=== PATIENT | female | born 1940 | race Caucasian/White ===

== ENCOUNTER 2020-03-08 10:01 | Outpatient (CLI) | payer OTHER ==
[~2020-03-08 10:01] MED LIST: METFORMIN HCL750 MG PO
== END 2020-03-08 15:00 | disposition home or self-care (01) ==
LOC: LAB 10:01
PROVIDERS: ATTEND Surgery
DX: Z20.828 Contact with and (suspected) exposure to other viral communicable diseases (principal); I10 Essential (primary) hypertension; D64.89 Other specified anemias; D68.8 Other specified coagulation defects; N39.0 Urinary tract infection, site not specified; E04.1 Nontoxic single thyroid nodule; E78.2 Mixed hyperlipidemia

== ENCOUNTER 2020-03-09 05:55 | Day surgery (SDC) | payer OTHER | END 2020-03-09 22:30 | disposition home or self-care (01) | LOC: CIR.AMB 05:55 | PROVIDERS: ATTEND Surgery | DX: D05.12 Intraductal carcinoma in situ of left breast (principal); Z20.828 Contact with and (suspected) exposure to other viral communicable diseases ==